=== PATIENT | male | born 1975 | race Caucasian/White ===

== ENCOUNTER 2022-05-24 00:54 | Emergency (ER) | payer SELFPAY ==
[~2022-05-24] VITALS: Ht 170.2 cm; Wt 97.5 kg
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
--- NOTE | 2022-05-24 01:21 | NUR ---
PT TAKEN TO CT VIA [facility]
[2022-05-24] MEDS ORDERED: ACETAMINOPHEN ES 500 MG TABLET ONE (01:27)
[2022-05-24] MEDS ORDERED: ACETAMINOPHEN ES 500 MG TABLET PO ONE (01:30)
--- NOTE | 2022-05-24 01:39 | NUR ---
PT RETURNED TO ER BED [address]
--- NOTE | 2022-05-24 02:29 | NUR ---
Patient discharged to home in stable condition. Written and verbal after care instructions given. Patient verbalizes understanding of instruction.
[2022-05-24 02:31] VITALS: BP 161/88
== END 2022-05-24 02:31 | disposition home or self-care (01) ==
LOC: ER 00:59
DX: R51.9 Headache, unspecified (principal); V49.59XA Passenger injured in collision with other motor vehicles in traffic accident, initial encounter; Y93.89 Activity, other specified; Y92.413 State road as the place of occurrence of the external cause; Y99.8 Other external cause status
CPT/HCPCS: 70450-TC; 72125-TC